=== PATIENT | female | born 1970 | race Caucasian/White ===

== ENCOUNTER 2023-12-09 05:59 | Day surgery (SDC) | payer OTHER, SELFPAY ==
[2023-12-07 09:54] VITALS: BMI 38.7
--- NOTE | 2023-12-09 | DI.RAD.S_ITS ---
PROCEDURE: XR LUMBAR SPINE 2-3V INDICATIONS: LAMI L3-4, L4-5 TECHNIQUE: 4 intraoperative fluoroscopic views of the lumbar spine were acquired. COMPARISON: [facility], RF, LUMBAR SPINE INTERIAMINAR, 09/28/2023, 12:53. [facility], MR, MR LUMBAR SPINE WITHOUT CONTRAST, 08/04/2023, 17:27. FINDINGS: Intraoperative fluoroscopicImages shows surgical instrument placed posteriorly at L3-4 and L4-5 levels. IMPRESSION: Fluoro guidance was provided intraoperatively for L3-4 and L4-5 level laminectomy performed by ordering physician. Dictated by: Otis Bhakta M.D. on 12/09/2023 at 13:16 Approved by: Otis Bhakta M.D. on 12/09/2023 at 13:17
[2023-12-09 07:04] VITALS: BP 145/83; PULSE 78; RESP 16; TEMP 36.3; O2SAT 98; BMI 37.9
[2023-12-09] MEDS: LACTATED RINGERS 1,000 ML 42 ML IV (07:15)
--- NOTE | 2023-12-09 07:39 | PM.PREOP ---
Pre-operative Note Interval Note History & Physical reviewed/Exam performed by Physician: Yes Changes to H&P: No
[2023-12-09] MEDS: CEFAZOLIN 2 GM/100 ML PREMIX 100 ML IV (07:53)
--- NOTE | 2023-12-09 08:03 | SUR.OPER ---
Prone on spine table, head in foam head support, padded chest and pelvic supports, gel pad at knees, lower legs supported by pillows; nipples, genitalia and toes free of pressure, arms secured on foam padded arm boards at <90 degrees abduction. Tape over blanket at thigh secured to table.
[2023-12-09] MEDS: BUPIVACAINE 0.25% (PF) 30 ML, EPINEPHrine 0.15 MG INJ (08:12)
--- NOTE | 2023-12-09 09:12 | P.OP_ITS ---
Operative Date/Time/Diagnoses Date of procedure: 12/09/23 Time of procedure: 07:40 Pre-op diagnosis: 1. L3-4, L4-5 spinal stenosis 2. Epidural lipomatosis Post-op diagnosis: same Procedure & Clinicians Procedure: 1. L3-4 laminectomies with bilateral partial facetecectomies 2. L4-5 left hemilaminectomy 3. Epidural lipomatosis excision 4. Utilization of robotic assisted navigation Same procedure as scheduled: Yes Indications: Patient has been having chronic back pain and worsening lumbar radiculopathy and symptoms of neurogenic claudication. Patient was found have L3-4 L4-5 spinal stenosis with epidural lipomatosis correlating with her symptoms. Patient failed multiple conservative management with worsening pain weakness and numbness in her lower extremity. Patient has been having difficulty performing activity of daily living. After discussing risks benefits of treatment options, patient elected proceed with surgery. Surgeon: Bita Dixon Customer Orders Clerk: Pearl Bennett Click Yes if Unassisted: No Anesthesia Type: General Operative Notes Closure Type: primary Specimen(s): none sent Estimated Blood Loss (mL): 5 Blood products transfused: none Procedure in detail: Patient was seen in the preoperative area. Risks and benefits of the surgery was discussed with the patient. Informed consent was obtained from the patient and placed in the chart. Surgical site was marked. Patient was taken to the operative room. General anesthesia was administered. Prophylactic antibiotic was given to the patient less than 30 min before the incision was made. Patient was placed into a prone position on the Ab table. Patient's back was then prepped and draped in the sterile fashion. Time-out was performed at this time. Using AP and lateral C-arm imaging the interval between L3-4 was identified and marked on patient's back. A 1 inch incision 1 in from midline was made on the left side. The fascia was incised in line with skin incision. Globus MARS retractors was placed inside the incision and docked onto the L3 lamina. Using microsurgical technique and operating microscope, a L3 laminectomy was performed using a Kerrison rongeur. Liagamentum flavum was resected at the site of the laminotomy. Either side of the dura was exposed. Bilateral partial facetcomies was performed to further decompress the lateral recess. After the laminectomy was completed, the area medial lateral superior and inferior to the area of the laminectomy was inspected and explored using a micro curette. No other impinging structure was identified. The mars retractor was redirected over the L4-5 interval. Using microsurgical technique and operative microscope a hemilaminectomy was performed at L4-5 level. Kerrison rongeur a micro curette was used to free up the ligamentum flavum which was resected during the process of a hemilaminectomy for the further decompressing the epidural space and lateral recess. Patient was found have significant epidural lipomatosis at both levels contributing to central stenosis. The epidural lipomatosis were resected using Kerrison rongeur pituitaries. Both levels were appropriately decompress with laminectomy, hemilaminectomy, and epidural lipomatosis excision. The wound was then irrigated with sterile normal saline. 40 mg Depo-Medrol was placed into the epidural space. The deep fascia was closed with 1-0 Vicryl. The subcutaneous tissue was closed with 2-0 Vicryl. The skin was closed with skin amy. Patient tolerated the procedure well. There were no complications. Patient was transferred recovery room in stable condition. Complications: none Post-operative Condition: stable Disposition: PACU Plan for aftercare: Discharge to home
[2023-12-09 09:20] VITALS: BP 149/57; PULSE 108; RESP 12; TEMP 36.9; O2SAT 93
[2023-12-09 09:25] VITALS: BP 130/62; PULSE 104; RESP 12; TEMP 36.9; O2SAT 96
[2023-12-09 09:30] VITALS: BP 125/64; PULSE 99; RESP 12; TEMP 36.8; O2SAT 95
[2023-12-09 09:35] VITALS: BP 118/56; PULSE 96; RESP 13; TEMP 36.7; O2SAT 95
[2023-12-09] MEDS: OXYCODONE IR 5 MG TABLET PO (09:43)
== END 2023-12-09 10:12 | disposition home or self-care (01) ==
PROVIDERS: PCP Family Medicine; Referring Provider Orthopaedic Surgery Orthopaedic Surgery of the Spine; Visit Provider Orthopaedic Surgery Orthopaedic Surgery of the Spine
PROC: (CPT 63047; principal; 2023-12-09 07:45)
DX: M48.062 Spinal stenosis, lumbar region with neurogenic claudication (principal); D17.79 Benign lipomatous neoplasm of other sites; M54.16 Radiculopathy, lumbar region
CPT/HCPCS: 63047; 63048; 72100; 76000; J0171; J0330; J0690; J1100; J1170; J2250; J2405; J2704; J2919; J3010